=== PATIENT | male | born 1990 | race Caucasian/White ===

== ENCOUNTER 2019-05-25 12:46 | Emergency (ER) | payer OTHER ==
[~2019-05-25] VITALS: Ht 180.3 cm; Wt 135.2 kg
[2019-05-25 12:51] VITALS: BP_SYST 139
[2019-05-25] MEDS ORDERED: DEXAMETHASONE SOD PHOSPHATE 10 MG/ML VIAL IM ONE (13:30)
[2019-05-25] MEDS ORDERED: KETOROLAC TROMETHAMINE 60 MG/2 ML VIAL IM ONE (13:30)
[2019-05-25 14:04] VITALS: BP_SYST 139
== END 2019-05-25 14:03 | disposition home or self-care (01) ==
LOC: SED 12:46
DX: J02.8 Acute pharyngitis due to other specified organisms (principal); B97.89 Other viral agents as the cause of diseases classified elsewhere; E11.9 Type 2 diabetes mellitus without complications; R03.0 Elevated blood-pressure reading, without diagnosis of hypertension
CPT/HCPCS: 36415; 86403; 87081; 96372; 99283; J1100; J1885